=== PATIENT | male | born 1960 ===

== ENCOUNTER 2016-12-09 19:49 | Emergency (ER) | payer BC, OTHER ==
[2016-12-09 20:54] VITALS: BP 126/70
--- NOTE | 2016-12-09 21:01 | EDM.PDOC ---
ED HPI GENERAL MEDICAL PROBLEM - General Chief Complaint: Chemical Exposure Stated Complaint: POISON Time Seen by Provider: 12/09/16 20:50 Source of Information: Reports: Patient History Limitations: Reports: No Limitations - History of Present Illness INITIAL COMMENTS - FREE TEXT/NARRATIVE: HISTORY AND PHYSICAL: History of present illness: Patient is a 56-year-old male who presents to the emergency room today with concerns of taking too much of his muscle tracks a. Patient sees a physician in [facility] for his polymyalgia and was prescribed methotrexate to be taken once weekly. This medication is meant to be 50 mg/2 mL and give 0.5 mL ( 12.5mg) once weekly. He states there was some miscommunication he gave the full 2 mL's (50mg) instead of the prescribed 0.5 mL. He reports that he told his physician this information to clarify his next dosing. Dr. Berg suggested he follow-up in the emergency room to get some labs conducted as he may need a Leuokvior injection. Patient currently has no health concerns and denies any pain anywhere. He states "if my doctor wasn't concerned I went have been either". States he is eating and drinking okay. Urination and bowel patter is normal, unchanged. Denies any chest pain, shortness of breath, fever or chills. Review of systems: As per history of present illness and below otherwise all systems reviewed and negative. Past medical history: As per history of present illness and as reviewed below otherwise noncontributory. Surgical history: As per history of present illness and as reviewed below otherwise noncontributory. Social history: No reported history of drug or alcohol abuse. Family history: As per history of present illness and as reviewed below otherwise noncontributory. Physical exam: Gen.: Well-developed and well-nourished 56-year-old male. Able to speak in full sentences without shortness of breath. Alert and oriented. HEENT: Atraumatic, normocephalic, pupils reactive, negative for conjunctival pallor or scleral icterus, mucous membranes moist, throat clear, neck supple, nontender, trachea midline. No lymphadenopathy. Lungs: Clear to auscultation, breath sounds equal bilaterally, chest nontender. Heart: S1S2, regular rate and rhythm Abdomen: Soft, nondistended, nontender. Negative for masses or hepatosplenomegaly. Negative for costovertebral tenderness. Pelvis: Stable nontender. Genitourinary: Deferred. Rectal: Deferred. Extremities: Atraumatic, moves all extremities per self without pain or difficulty, negative for cords or calf pain. Neurovascular unremarkable. Neuro: Awake, alert, oriented. Cranial nerves II through XII unremarkable. Cerebellum unremarkable. Motor and sensory unremarkable throughout. Exam nonfocal. Labs returned and are within normal limits. I did call Dr. Berg at [phone] , his primary care provider in [place], he suggested that the patient be prescribed Leucovorin 5mg every 8 hours x 2 days and then have his labs reevaluated in 2 days. Patient states he has from [facility] and is unable to come back to [place] for routine leucovorin injection. Did talk with our pharmacist and she states that the IV/IM route can be given orally. I will have this medication reconstituted so he can have 5 mg orally every 6 hours 2 days. Patient states he is going to follow-up at [facility] for his repeat labs. At that time if he needs additional leucovorin he will return to [place] and keep close communication with his physician in [place]. Dr. Corbett was involved with this case. Diagnostics: CBC, CMP Therapeutics: [] Impression: Methyltrexate overdose, unintentional Plan: 1. Please take your Leucovorin 5mg every 6 hours x 2 days. 2. Your labs need to be reevaluated in 2 days. 3. Please be careful to take it easy over the next week as you do not want to cause any injury or trauma. 4. Hold on her next dose of methotrexate until further notice by Dr. Berg 5. Return to the ED as needed and as discussed Definitive disposition and diagnosis as appropriate pending reevaluation and review of above. Onset Date: 12/06/16 no pain Pain Score (Numeric/FACES): 0 - Related Data Allergies Allergy/AdvReac Type Severity Reaction Status Date / Time No Known Allergies Allergy Verified 12/09/16 20:46 Home Meds: Home Meds Acetaminophen/HYDROcodone [[place] 325-5 MG] 1 - 2 tab PO Q6H PRN #30 tablet 06/07 [Rx] Aspirin 325 mg PO DAILY #14 tablet 06/08/15 [Rx] Methotrexate Sodium/PF [Methotrexate 50 mg/2 ml Vial] 0.5 ml SQ WEEKLY 12/09/16 [History] prednisoLONE [Millipred] 7.5 mg PO DAILY 12/09/16 [History] Past Medical History - Past Surgical History Other Musculoskeletal Surgeries/Procedures:: L shoulder arthroscopy, L knee arthroscopy Social & Family History - Tobacco Use Smoking Status *Q: Never Smoker - Recreational Drug Use Recreational Drug Use: No Drug Use in Last 12 Months: No ED ROS GENERAL - Review of Systems Review Of Systems: ROS reveals no pertinent complaints other than HPI. ED EXAM, BURN/SMOKE INHALATION - Physical Exam Exam: See Below (See dictation) Course - Vital Signs Last Recorded V/S: Last Vital Signs Temp 36.3 C 12/09/16 20:48 Pulse 66 12/09/16 20:48 Resp 18 12/09/16 20:48 BP 126/70 12/09/16 20:48 Pulse Ox 97 12/09/16 20:48 - Orders/Labs/Meds Labs: Laboratory Tests 12/09/16 12/09/16 Range/Units 20:39 20:39 WBC 11.15 H (4.0-11.0) K/uL RBC 4.39 L (4.50-5.90) M/uL Hgb 13.3 (13.0-17.0) g/dL Hct 38.0 (38.0-50.0) % MCV 86.6 (80.0-98.0) fL MCH 30.3 (27.0-32.0) pg MCHC 35.0 (31.0-37.0) g/dL RDW Std Deviation 39.8 (28.0-62.0) fl RDW Coeff of Cecy 13 (11.0-15.0) % Plt Count 189 (150-400) K/uL MPV 9.20 (7.40-12.00) fL Neut % (Auto) 42.6 L (48.0-80.0) % Lymph % (Auto) 50.7 H (16.0-40.0) % [place] % (Auto) 5.3 (0.0-15.0) % Eos % (Auto) 1.0 (0.0-7.0) % Baso % (Auto) 0.4 (0.0-1.5) % Neut # (Auto) 4.8 (1.4-5.7) K/uL Lymph # (Auto) 5.7 H (0.6-2.4) K/uL [place] # (Auto) 0.6 (0.0-0.8) K/uL Eos # (Auto) 0.1 (0.0-0.7) K/uL Baso # (Auto) 0.1 (0.0-0.1) K/uL Nucleated RBC % 0.0 /100WBC Nucleated RBCs # 0 K/uL Sodium 139 (136-146) mmol/L Potassium 3.9 (3.5-5.1) mmol/L Chloride 109 (98-110) mmol/L Carbon Dioxide 23 (21-31) mmol/L BUN 19 (6.0-23.0) mg/dL Creatinine 1.0 (0.6-1.5) mg/dL Est Cr Clr Drug Dosing 90.53 mL/min Estimated GFR (MDRD) > 60.0 ml/min Glucose 100 (60-110) mg/dL Calcium 9.3 (8.8-10.8) mg/dL Total Bilirubin 0.3 (0.1-1.5) mg/dL AST 17 (5-40) IU/L ALT 16 (8-54) IU/L Alkaline Phosphatase 37 L (40-150) Total Protein 6.7 (6.0-8.0) g/dL Albumin 3.9 (3.5-5.0) g/dL Globulin 2.8 (2.0-3.5) g/dL Albumin/Globulin Ratio 1.4 (1.3-2.8) Meds: Medications Discontinued Medications Generic Name Dose Route Start Last Admin Trade Name Freq PRN Reason Stop Dose Admin Leucovorin Calcium 15 mg 12/09/16 21:38 Leucovorin IM 12/09/16 21:39 NOW STA Departure - Departure Time of Disposition: 22:01 Disposition: Home, Self-Care 01 Clinical Impression: Intentional methotrexate overdose Qualifiers: Encounter type: initial encounter Qualified Code(s): T45.1X2A - Poisoning by antineoplastic and immunosuppressive drugs, intentional self-harm, initial encounter - Discharge Information Referrals: PCP,None [Primary Care Provider] - Forms: ED Department Discharge Additional Instructions: My general discharge The following information is given to patients seen in the emergency department who are being discharged to home. This information is to outline your options for follow-up care. We provide all patients seen in our emergency department with a follow-up referral. The need for follow-up, as well as the timing and circumstances, are variable depending upon the specifics of your emergency department visit. If you don't have a primary care physician on staff, we will provide you with a referral. We always advise you to contact your personal physician following an emergency department visit to inform them of the circumstance of the visit and for follow-up with them and/or the need for any referrals to a consulting specialist. The emergency department will also refer you to a specialist when appropriate. This referral assures that you have the opportunity for follow-up care with a specialist. All of these measure are taken in an effort to provide you with optimal care, which includes your follow-up. Under all circumstances we always encourage you to contact your private physician who remains a resource for coordinating your care. When calling for follow-up care, please make the office aware that this follow-up is from your recent emergency room visit. If for any reason you are refused follow-up, please contact the [facility] Emergency Department at and asked to speak to the emergency department charge nurse. [facility] [address] [place] [id number] 1. Please take your Leucovorin 5mg every 6 hours x 2 days. 2. Your labs need to be reevaluated in 2 days. 3. Please be careful to take it easy over the next week as you do not want to cause any injury or trauma. 4. Hold on her next dose of methotrexate until further notice by Dr. Berg 5. Return to the ED as needed and as discussed
[2016-12-09 21:02] LABS: CHLORIDE,CL 109 mmol/L (98-110); SODIUM,NA 139 mmol/L (136-146)
[2016-12-09] MEDS ORDERED: LEUCOVORIN IM STA ×2 (21:38→22:31)
== END 2016-12-09 22:55 | disposition home or self-care (01) ==
LOC: MW.ED 19:49
DX: T45.1X1A Poisoning by antineoplastic and immunosuppressive drugs, accidental (unintentional), initial encounter (principal); Z79.82 Long term (current) use of aspirin; Z79.899 Other long term (current) drug therapy
CPT/HCPCS: 36415; 80053; 85025; 96372; 99284; J0640